=== PATIENT | male | born 1970 | race Caucasian/White ===

== ENCOUNTER 2020-05-16 09:24 | Emergency (ER) | payer OTHER, SELFPAY ==
--- NOTE | ~2020-05-16 | XR_ITS ---
EXAMINATION: XR facial bones min 3V DATE: 05/16/2020 10:35 INDICATION: Face injury. Epistaxis. Left periorbital swelling. TECHNIQUE: 4 views of the facial bones were obtained. COMPARISON: None. FINDINGS: There is rightward deviation of superior nasal septum. No fracture. IMPRESSION: 1. No fracture. 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 No fracture.
[2020-05-16 09:33] VITALS: BP 154/91; PULSE 70; RESP 16; TEMP 37; O2SAT 100
--- NOTE | 2020-05-16 09:56 | ED.EYEPROB ---
HPI - Eye Problem General Chief complaint: Eye Problems Stated complaint: left eye injury Time Seen by Provider: 05/16/20 09:56 Source: patient and RN notes reviewed Mode of arrival: ambulatory Limitations: no limitations History of Present Illness HPI Narrative: 49 year old male who presents to [facility] with complaints of left eye pain bruising, swelling with small superficial laceration under his left eye which occurred this morning at around 0800. Patient reports that he was at work in a backhoe pushing down a tree at work with a limb coming back hitting him in the left side of his face and eye breaking his glasses. Patient states that his vision is clear but he has developed a headache about an hour later and also did have a nose bleed. Patient states that he did apply ice to his left eye region but has not taken any OTC medication. MD chief complaint: eye injury and other (swelling, bruising with small abrasion under left eye) Onset (ago): hour(s) (about 2 hours prior to arrival) Onset description: sudden Duration: constant Location: left eye Eye Symptoms: pain and other (swelling with bruising) Place: work Mechanism: direct trauma Severity: moderate Severity scale (1-10): 5 If Pain, Quality: aching Context: trauma Associated symptoms: headache and other (nose bleed) Treatments Prior to Arrival: ice Related Data Patient tetanus UTD: Yes Home Medications Medication Instructions Recorded Confirmed fluoxetine 20 mg PO DAILY 05/16/20 05/16/20 Allergies Allergy/AdvReac Type Severity Reaction Status Date / Time No Known Allergies Allergy Verified 05/16/20 10:12 Review of Systems Review of Systems: Narrative: CONSTITUTIONAL: Denies fever, chills, or sweats. EYES: Denies visual changes, Positive for swelling to left eye with ecchymosis and superficial abrasion under left eye from injury, no redness, or discharge. ENT: Denies rhinorrhea, positive for episode of nose bleeding, no congestion, sore throat, or otalgia. CARDIOVASCULAR: Denies chest pain, palpitations, or edema. RESPIRATORY: Denies cough or dyspnea. GASTROINTESTINAL: Denies abdominal pain, nausea, vomiting, or diarrhea. GENITOURINARY: Denies dysuria or hematuria. SKIN: Denies rash or itching. MUSCULOSKELETAL: Denies back pain, joint pain, or myalgia. NEUROLOGIC: Positive headache, no numbness, or weakness. PSYCHIATRIC: Positive history of anxiety or depression. All systems reviewed & are unremarkable except as noted in HPI and below PMFSH Past Medical History Medical History (Updated 05/16/20 @ 12:27 by Nadege Lafleur NP) Depression Surgical History Surgical History (Updated 05/16/20 @ 12:33 by Nadege Lafleur NP) No significant past surgical history Social History Social History (Updated 05/16/20 @ 12:28 by Nadege Lafleur NP) Smoking packs per day: 1 Smoking cigarettes per day: 20.0 Years smoked: 30 Smoking pack-years: 30.00 Smoking status: Current every day smoker Tobacco type: cigarettes Living arrangements: with family Gender identity (if verbalized by the patient): Male Comments At time of signature, agree with nursing past medical, surgical, social history. There is no relevant family history pertinent to the presenting complaint Exam Narrative: Exam Narrative: GENERAL: Well-appearing, well-nourished, and in no acute distress. HEAD: Normocephalic, atraumatic. EYES: PERRLA and EOMI.Edema to left upper eyelid and under left eye also with bruising and superficial laceration under left eye from blunt trauma this morning from tree branch hitting him in the eye breaking his glasses, no change in vision. ENT: Nares clear, no rhinorrhea episode of epistaxis from left nostril which has resolved. Mucous membranes moist.TM's normal with good light reflex, throat pink with no swelling or drainage. NECK: Supple.no lymphadenopathy CHEST: Clear to auscultation. No respiratory distress.SAO2 100% HEART: Regular rate and rhythm.
== END 2020-05-16 10:52 | disposition home or self-care (01) ==
PROVIDERS: Emergency Provider Registered Nurse; PCP Internal Medicine
DX: S05.8X2A Other injuries of left eye and orbit, initial encounter (principal); W22.8XXA Striking against or struck by other objects, initial encounter; Y99.0 Civilian activity done for income or pay; S05.02XA Injury of conjunctiva and corneal abrasion without foreign body, left eye, initial encounter; F17.210 Nicotine dependence, cigarettes, uncomplicated; F32.9 Major depressive disorder, single episode, unspecified
CPT/HCPCS: 70150; 99203; A9270; G0463